=== PATIENT | male | born 1995 | race Caucasian/White ===

== ENCOUNTER 2018-09-27 08:55 | Emergency (ER) | payer BC ==
[~2018-09-27] VITALS: Ht 172.7 cm; Wt 72.6 kg
[2018-09-27 09:06] VITALS: Ht 172.7 cm; Wt 72.6 kg
[2018-09-27] MEDS ORDERED: SEROQUEL100 MG (09:09)
[2018-09-27] MEDS ORDERED: SEROQUEL300 MG PO (09:10)
[2018-09-27] MEDS ORDERED: SEROQUEL50 MG PO (09:10)
[2018-09-27] MEDS ORDERED: NEURONTIN 300300 MG PO (09:11)
[2018-09-27] MEDS ORDERED: ZOLOFT100 MG PO (09:11)
[2018-09-27] MEDS ORDERED: ACETAMINOPHEN500 M1 PO (09:52)
[2018-09-27] MEDS ORDERED: IBUPROFEN800 MG PO (09:52)
[2018-09-27] MEDS ORDERED: CYCLOBENZAPRINE10 MG PO (09:52)
[2018-09-27 11:20] VITALS: BP 139/76
== END 2018-09-27 11:21 | disposition home or self-care (01) ==
LOC: D.ER 08:55
DX: M79.632 Pain in left forearm (principal); M25.531 Pain in right wrist; Y04.2XXA Assault by strike against or bumped into by another person, initial encounter; Y93.89 Activity, other specified; Y92.89 Other specified places as the place of occurrence of the external cause